=== PATIENT | male | born 1955 | race Caucasian/White ===

== ENCOUNTER 2017-11-08 15:44 | Emergency (ER) | payer SELFPAY ==
[~2017-11-08] VITALS: Ht 182.9 cm; Wt 70.8 kg
[2017-11-08 16:04] VITALS: Ht 182.9 cm; Wt 70.8 kg
[2017-11-08] MEDS ORDERED: OMEPRAZOLE20 M1 PO (16:06)
[2017-11-08] MEDS ORDERED: ULTRAM50 MG PO (16:06)
[2017-11-08] MEDS ORDERED: ZESTRIL20 MG PO (16:06)
[2017-11-08] MEDS ORDERED: VOLTAREN75 MG PO (18:02)
[2017-11-08] MEDS ORDERED: VISTARIL25 MG PO (18:02)
[2017-11-08 18:28] VITALS: BP 132/80
== END 2017-11-08 18:28 | disposition home or self-care (01) ==
LOC: D.ER 15:44
DX: F41.8 Other specified anxiety disorders (principal); M25.512 Pain in left shoulder